=== PATIENT | female | born 1980 | race Caucasian/White ===

== ENCOUNTER → 2020-05-07 | Outpatient (CLI) | payer OTHER | LOC: SLEEP-COR 15:38 | DX: G47.33 Obstructive sleep apnea (adult) (pediatric) (principal); K21.9 Gastro-esophageal reflux disease without esophagitis; I35.1 Nonrheumatic aortic (valve) insufficiency; J34.3 Hypertrophy of nasal turbinates | CPT/HCPCS: 95810 ==